=== PATIENT | female | born 1980 | race Caucasian/White ===

== ENCOUNTER 2020-05-11 00:49 | Emergency (ER) | payer OTHER ==
[2020-05-11 01:23] LABS: BILIRUBIN NEGATIVE (NEGATIVE); BLOOD TRACE-INTACT Ery/uL (NEGATIVE); CLARITY CLEAR (CLEAR); COLOR YELLOW (YELLOW); GLUCOSE (U) NORMAL (NORMAL); LEUKOCYTES NEGATIVE Leu/uL (NEGATIVE); NITRITE NEGATIVE (NEGATIVE); PROTEIN NEGATIVE (NEGATIVE); UROBILINOGEN 0.2 mg/dL (0.2-1.0)
[2020-05-11 01:29] LABS: BACTERIA TRACE; SQUAMOUS EPITHELIAL CELLS RARE; URINARY RBC RARE; YEAST PRESENT
[2020-05-14 06:09] LABS: CHLAMYDIA TRACHOMATIS, NAA Negative (Negative); NEISSERIA GONORRHOEAE, NAA Negative (Negative)
== END 2020-05-11 02:10 | disposition home or self-care (01) ==
LOC: FER 00:49
PROVIDERS: Emergency Medicine
DX: B37.3 Candidiasis of vulva and vagina (principal); F17.210 Nicotine dependence, cigarettes, uncomplicated; Z98.51 Tubal ligation status; Z90.49 Acquired absence of other specified parts of digestive tract; Z88.0 Allergy status to penicillin
CPT/HCPCS: 81001; 87210; 87491; 87591; 99283

== ENCOUNTER 2020-06-03 20:02 | Emergency (ER) | payer OTHER ==
[2020-06-03] MEDS ORDERED: BENADRYL25 MG PO (23:28)
[2020-06-03] MEDS ORDERED: PEPCID AC20 MG PO (23:28)
[2020-06-03] MEDS ORDERED: PREDNISONE20 MG PO (23:28)
== END 2020-06-04 00:20 | disposition home or self-care (01) ==
LOC: FER 20:02
DX: L50.0 Allergic urticaria (principal); F17.210 Nicotine dependence, cigarettes, uncomplicated; Z88.0 Allergy status to penicillin
CPT/HCPCS: 99282; J7512

== ENCOUNTER 2020-06-05 22:09 | Emergency (ER) | payer OTHER ==
[~2020-06-05 22:09] MED LIST: BENADRYL25 MG PO; PEPCID AC20 MG PO; PREDNISONE20 MG PO
[2020-06-06 04:02] LABS: BASOPHIL 0.2 % (0-2); EOSINOPHIL 0.1 % (0-5); HCT 38.3 % (37.0-47.0); HGB 12.8 g/dl (12.5-16.0); LYMPHOCYTE 6.3 % (15-48); MCH 29.6 pg (25.0-31.0); MCHC 33.4 g/dL (32.0-36.0); MCV 88.7 fL (78.0-100.0); MONOCYTE 5.6 % (0-12); MPV 9.6 fL (6.0-9.5); NEUTROPHIL 87.3 % (41-80); NRBC 0; PLT 303 K/uL (150-400); RBC 4.32 M/uL (4.20-5.40); RDW 13.1 % (11.5-14.0)
[2020-06-06 04:22] LABS: LACTIC ACID 1.6 mmol/L (0.4-1.9)
[2020-06-06 04:31] LABS: ALKALINE PHOSHATASE 63 U/L (46-116); ALT 18 U/L (14-59); AST 12 U/L (15-37); BILIRUBIN - TOTAL 0.4 mg/dL (0.2-1.0); BUN 13 mg/dL (7-18); C-REACTIVE PROTEIN < 0.20 mg/dL (<=0.90); CHLORIDE 104 mmol/L (98-107); CO2 (BICARBONATE) 25 mmol/L (21-32); CREATININE 0.59 mg/dL (0.51-0.95); GLUCOSE 132 mg/dL (74-106); MAGNESIUM 1.9 mg/dL (1.8-2.4)
[2020-06-06] MEDS ORDERED: TRIAMCINOLONE 080 GM TOP (06:35)
[2020-06-06] MEDS ORDERED: ATARAX25 MG PO (06:35)
== END 2020-06-06 06:50 | disposition home or self-care (01) ==
LOC: FER 22:09
PROVIDERS: Emergency Medicine Emergency Medical Services
DX: R21 Rash and other nonspecific skin eruption (principal); L29.9 Pruritus, unspecified; F17.210 Nicotine dependence, cigarettes, uncomplicated; Z88.0 Allergy status to penicillin
CPT/HCPCS: 36415; 80053; 83605; 83735; 84439; 84443; 85025; 86140; 87040; J1100; J1200; J7030